=== PATIENT | male | born 1955 | race African-American/Black ===

== ENCOUNTER 2019-10-23 12:52 | Emergency (ER) | payer MEDICAID ==
[~2019-10-23] VITALS: Ht 175.3 cm; Wt 129.0 kg
[2019-10-23 17:32] VITALS: BP 138/71
== END 2019-10-23 17:47 | disposition left against medical advice (07) ==
LOC: ER 12:52
DX: Z53.21 Procedure and treatment not carried out due to patient leaving prior to being seen by health care provider (principal)

== ENCOUNTER 2020-04-23 10:28 | Inpatient (IN) | payer MEDICARE, MEDICAID ==
[~2020-04-23] VITALS: Ht 175.3 cm; Wt 122.0 kg
[2020-04-23] VITALS (8 sets, daily range): BP systolic 115–137; BP diastolic 56–81
[2020-04-23] MEDS ORDERED: SODIUM CHLORIDE 0.9% 1,000 ML IV ONE (11:41)
[2020-04-23] MEDS ORDERED: PANTOPRAZOLE SODIUM 40 MG/VIAL IV ONE (11:45)
[2020-04-23 12:10] LABS: MEAN CORPUSCULAR HEMOGLOBIN 18.1 pg (28.0-32.0); MEAN PLATELET VOLUME 8.3 fl (7.4-10.4); PLATELET 337 x1000/uL (130-400); RED BLOOD CELL COUNT 2.75 mill/uL (4.7-6.1); RED CELL DISTRIBUTION WIDTH 21.6 % (11.6-14.6)
[2020-04-23 12:17] LABS: CHLORIDE 111 mEq/L (98-107)
[2020-04-23 12:18] LABS: INR 1.1; PROTHROMBIN TIME 11.4 sec (9.6-11.0)
[2020-04-23 12:21] LABS: HEMATOCRIT. 17.6 % (42.0-52.0)
[2020-04-23 12:46] LABS: NUCLEATED RED BLOOD CELLS 1 /100 WBC; PLATELET ESTIMATE NORMAL
[2020-04-23] MEDS ORDERED: PNEUMOCOCCAL 23-VAL P-SAC VAC 0.5 ML IM ONE (17:30)
[2020-04-23] MEDS ORDERED: DIPHENHYDRAMINE 50MG/ML VIAL IV PRN (18:15)
[2020-04-23] MEDS ORDERED: CLONIDINE 0.1MG TABLET PO PRN (18:15)
[2020-04-23] MEDS ORDERED: MORPHINE SULFATE 2 MG/ML CPJ (NOT FOR IM USE) IV PRN (18:15)
[2020-04-23] MEDS ORDERED: ONDANSETRON HCL 4MG/2ML INJ IV PRN (18:15)
[2020-04-23 20:14] LABS: HEMATOCRIT 19.5 % (42.0-52.0); HEMOGLOBIN 5.6 g/dL (14.0-18.0)
[2020-04-24] VITALS (10 sets, daily range): BP systolic 107–136; BP diastolic 62–78
[2020-04-24 01:11] LABS: HEMATOCRIT 22.6 % (42.0-52.0); MEAN CORPUSCULAR HEMOGLOBIN 20.3 pg (28.0-32.0); MEAN CORPUSCULAR VOLUME 68.6 fL (80.0-94.0); PLATELET 300 x1000/uL (130-400); RED CELL DISTRIBUTION WIDTH 25.1 % (11.6-14.6)
[2020-04-24 01:25] LABS: HEMOGLOBIN 6.7 g/dL (14.0-18.0)
[2020-04-24] MEDS: SODIUM CHLORIDE 0.9% 1,000 ML IV SCH (02:55)
[2020-04-24 06:37] LABS: CHLORIDE 113 mEq/L (98-107)
[2020-04-24 06:46] LABS: LDL CHOLESTEROL 46 mg/dL (5-100)
[2020-04-24 06:47] LABS: HDL CHOLESTEROL 30 mg/dL (40-59)
[2020-04-24 06:58] LABS: BASOPHILS % 0.7 % (0.0-2.0); EOSINOPHILS % 0.6 % (0.0-5.0); LYMPHOCYTES % 13.9 % (20.0-50.0); MEAN CORPUSCULAR HEMOGLOBIN 20.2 pg (28.0-32.0); MEAN CORPUSCULAR VOLUME 67.5 fL (80.0-94.0); MEAN PLATELET VOLUME 8.4 fl (7.4-10.4); MONOCYTES % 5.3 % (2.0-8.0); NEUTROPHILS % 79.5 % (40.0-76.0); PLATELET 279 x1000/uL (130-400); RED BLOOD CELL COUNT 3.08 mill/uL (4.7-6.1)
[2020-04-24] MEDS: PANTOPRAZOLE SODIUM 40 MG/VIAL IV SCH (08:22)
[2020-04-24 09:34] LABS: HEMATOCRIT. 20.8 % (42.0-52.0); HEMOGLOBIN. 6.2 g/dL (14.0-18.0)
[2020-04-24 16:34] LABS: TOTAL IRON BINDING CAPACITY 383 ug/dL (250-450)
[2020-04-24 18:02] LABS: HEMATOCRIT 26.1 % (42.0-52.0); HEMOGLOBIN 7.8 g/dL (14.0-18.0)
[2020-04-24 18:39] LABS: FOLIC ACID (FOLATE) SERUM 19.3 ng/mL (>5.38)
[2020-04-25] VITALS (8 sets, daily range): BP systolic 109–143; BP diastolic 59–75
[2020-04-25 01:31] LABS: HEMATOCRIT 23.3 % (42.0-52.0); HEMOGLOBIN 7.2 g/dL (14.0-18.0)
[2020-04-25] MEDS ORDERED: DIATR MEGLU/DIATRIZOATE SOLN 30ML PO NR (06:00)
[2020-04-25 06:21] LABS: BASOPHILS % 0.8 % (0.0-2.0); HEMATOCRIT. 26.8 % (42.0-52.0); HEMOGLOBIN. 8.2 g/dL (14.0-18.0); LYMPHOCYTES % 12.9 % (20.0-50.0); MEAN CORPUSCULAR HEMOGLOBIN 21.9 pg (28.0-32.0); MEAN CORPUSCULAR VOLUME 71.7 fL (80.0-94.0); MONOCYTES % 6.5 % (2.0-8.0); NEUTROPHILS % 78.8 % (40.0-76.0); PLATELET 274 x1000/uL (130-400); RED BLOOD CELL COUNT 3.74 mill/uL (4.7-6.1); RED CELL DISTRIBUTION WIDTH 27.4 % (11.6-14.6)
[2020-04-25] MEDS: PANTOPRAZOLE SODIUM 40 MG/VIAL IV SCH (08:25)
[2020-04-25 09:36] LABS: HEMATOCRIT 27.3 % (42.0-52.0); HEMOGLOBIN 8.4 g/dL (14.0-18.0); MEAN CORPUSCULAR HEMOGLOBIN 22.1 pg (28.0-32.0); MEAN CORPUSCULAR VOLUME 71.5 fL (80.0-94.0); PLATELET 275 x1000/uL (130-400); RED BLOOD CELL COUNT 3.82 mill/uL (4.7-6.1); RED CELL DISTRIBUTION WIDTH 27.1 % (11.6-14.6)
[2020-04-25] MEDS: SODIUM CHLORIDE 0.9% 1,000 ML IV SCH (10:02)
[2020-04-25 12:24] LABS: CLARITY URINE CLEAR (CLEAR); COLOR URINE YELLOW (YELLOW); KETONES URINE NEGATIVE (NEGATIVE); LEUKOCYTE ESTERASE URINE NEGATIVE (NEGATIVE); NITRITE URINE NEGATIVE (NEGATIVE); OCCULT BLOOD URINE NEGATIVE (NEGATIVE); PH URINE 5.5 (4.5-8.0); PROTEIN URINE NEGATIVE (NEGATIVE); SPECIFIC GRAVITY URINE 1.042 (1.005-1.030)
[2020-04-25] MEDS ORDERED: IOHEXOL-300 100 ML BOTTLE ONE (12:58)
== END 2020-04-25 15:20 | disposition home or self-care (01) | DRG 253 ==
LOC: ER 10:28 → 8WST 13:04 → EDBEDREQTM 13:12 → EDBEDREQ 13:12 → ENRESERV 15:40
PROVIDERS: ADMIT Internal Medicine; ATTEND Internal Medicine
PROC: 30233N1 Transfusion of Nonautologous Red Blood Cells into Peripheral Vein, Percutaneous Approach (ICD-10-PCS; principal; 2020-04-23)
DX: K92.2 Gastrointestinal hemorrhage, unspecified (principal); D50.0 Iron deficiency anemia secondary to blood loss (chronic); R74.0 Nonspecific elevation of levels of transaminase and lactic acid dehydrogenase [LDH]; E44.1 Mild protein-calorie malnutrition; E11.9 Type 2 diabetes mellitus without complications; I10 Essential (primary) hypertension; N40.0 Benign prostatic hyperplasia without lower urinary tract symptoms; R17 Unspecified jaundice; Z87.891 Personal history of nicotine dependence; Z68.39 Body mass index [BMI] 39.0-39.9, adult; Z88.6 Allergy status to analgesic agent
CPT/HCPCS: 36415; 71045; 74177; 80053; 80061; 81003; 82270; 82378; 82607; 82728; 82746; 82962; 83540; 83550; 84443; 85014; 85018; 85025; 85027; 85044; 86850; 86900; 86920; 93005; 93970; 99291; C9113; J7030; P9016; Q9963; Q9967